=== PATIENT | male | born 1985 | race Caucasian/White ===

== ENCOUNTER 2017-10-17 17:32 | Emergency (ER) | payer OTHER ==
[~2017-10-17] VITALS: Ht 172.7 cm; Wt 90.7 kg
--- NOTE | 2017-10-17 18:08 | NUR ---
[employer] PIP[employer]. WAS WALKING AND FELL IN A HOLE. PAIN IN THE RIGHT CALF WITH TIGHTNESS AND SWELLING. VITAL SIGNS TAKEN. NOTIFIED DOCTOR OF PATIENT'S ARRIVAL. WILL F/U WITH FURTHER ORDERS. LW
[2017-10-17] MEDS ORDERED: TORADOL ONE (18:10)
[2017-10-17] MEDS ORDERED: TORADOL IM STA (18:11)
--- NOTE | 2017-10-17 18:14 | NUR ---
RAD X-RAY HERE FOR PICTURES. LW
--- NOTE | 2017-10-17 18:28 | DIREP ---
PROCEDURE:XRAY TIB & FIB 2 VW-RT COMPARISON:None. INDICATIONS:PAIN FINDINGS: BONES:Normal. JOINTS:Normal. SOFT TISSUES:Normal. OTHER:No additional findings. CONCLUSION:Normal. Dictated by: Suhas Blackwood M.D. on 10/17/2017 at 06:27 PM
--- NOTE | 2017-10-17 20:49 | DIREP ---
PROCEDURE:CT LOWER EXTREMITY-RT W/O COMPARISON:[facility], CR, XRAY TIB & FIB 2 VW-RT, 10/17/2017, 06:00 PM. INDICATIONS:r/o gastrocnemius tear TECHNIQUE:Axial sections through the left leg from the knee to the ankle were performed. No contrast was administered. Non-diagnostic, minified sagittal and coronal reconstructions are provided. FINDINGS: BONES:Normal. JOINTS:Normal SOFT TISSUES:There is swelling and heterogeneous density of the distal half of the belly of the left gastrocnemius muscle OTHER:Negative. CONCLUSION:Partial tear of the distal body of the medial head of the gastrocnemius. The extent of injury could be evaluated more accurately with MR examination, if clinically appropriate. Dictated by: Enrique Ying III, MD on 10/17/2017 at 08:43 PM
--- NOTE | 2017-10-17 21:08 | ER.PDOC ---
General Chief Complaint: Extremities Stated Complaint: R LEG INJURY Time seen by MD: 20:00 Source: patient Exam Limitations: no limitations History of Present Illness Initial Comments 32 year old [place] with right calf pain. Stepped in a rabbit hole at work today with resultant severe pain, mid calf. Unable to ambulate because of pain. Onset: this afternoon Recent Injury: Yes Where: work Severity: moderate Exacerbated By: walking movement Relieved By: rest Allergies: Coded Allergies: No Known Drug Allergies (Verified Allergy, Unknown, 10/17/17) Past Medical History Medical History: no pertinent history Surgical History: no surgical history Social History Smoking: non-smoker Alcohol Use: none Drug Use: none Review of Systems Constitutional: denies no symptoms reported, denies see HPI, denies chills, denies diaphoresis, denies fever, denies malaise, denies weakness, denies other EENTM: denies no symptoms reported, denies see HPI, denies eye pain, denies blurred vision, denies tearing, denies double vision, denies ear pain, denies ear discharge, denies nose pain, denies nose congestion, denies throat pain, denies throat swelling, denies mouth pain, denies mouth swelling, denies other Respiratory: denies no symptoms reported, denies see HPI, denies cough, denies orthopnea, denies shortness of breath, denies stridor, denies wheezing, denies other Cardiovascular: denies no symptoms reported, denies see HPI, denies chest pain , denies edema, denies palpitations, denies syncope, denies other Gastrointestinal: denies no symptoms reported, denies see HPI, denies abdominal pain, denies constipation, denies diarrhea, denies nausea, denies vomiting, denies other Genitourinary: denies no symptoms reported, denies see HPI, denies discharge, denies dysuria, denies frequency, denies hematuria, denies pain, denies other Skin: denies no symptoms reported, denies see HPI, denies change in color, denies change in hair/nails, denies dryness, denies lesions, denies lumps, denies rash, denies other Psychiatric/Neurological: denies no symptoms reported, denies see HPI, denies anxiety, denies depressed, denies emotional problems, denies headache, denies numbness, denies paresthesia, denies pre-existing deficit, denies seizure, denies tingling, denies tremors, denies weakness, denies other Physical Exam General Appearance: Alert, No Apparent Distress Lower Extremity: tenderness (tender swollen right mid calf) Joint Exam: joints nml, nml ROM, nml gait/weight bearing Vascular: no vascular compromise, pulses full/equal Neuro/Psych: sensation nml, motor nml, oriented x3, CN's nml as tested, mood/ affect nml Skin: color nml, warm/dry, no rash Back/Neck: nml inspection EENT: eyes inspection nml, ENT inspection nml, pharynx nml Respiratory: no resp distress, breath sounds nml CVS: reg rate & rhythm, heart sounds nml Abdomen: non-tender, no organomegaly, no bruit/mass Results/Orders Results/Orders Administered Medications Medications (Trade) Dose Ordered Sig/Gurpreet Route PRN Reason Start Time Stop Time Status Last Admin Dose Admin Ketorolac Tromethamine (Toradol) 60 mg STAT STAT IM 10/17/17 18:11 10/17/17 18:12 DC 10/17/17 18:13 EKG/XRAY/CT/US CT Comments: CT showed gastrecnemius tear Departure Time of Disposition: 21:05 Disposition: 01 HOME, SELF-CARE Impression: Primary Impression: Gastrocnemius muscle tear Qualified Codes: S86.111A - Strain of other muscle(s) and tendon(s) of posterior muscle group at lower leg level, right leg, initial encounter Condition: Stable Referrals: PCP,UNKNOWN (PCP) PRIMARY CARE PROVIDER Additional Instructions: Follow up Dr. Bran tomorrow morning Walking boot/crutches Tylenol #3 Naproxen prn Duration or Time Spent with Pa: 25 MOMO BENAVIDES MD Oct 17, 2017 21:08
[2017-10-17] MEDS ORDERED: MORPHINE SULFATE IM STA (21:10)
[2017-10-17] MEDS ORDERED: ZOFRAN IM STA (21:10)
[2017-10-17] MEDS ORDERED: MORPHINE SULFATE ONE (21:21)
[2017-10-17 22:13] VITALS: BP 149/82
== END 2017-10-17 22:06 | disposition home or self-care (01) ==
LOC: ER 17:32
DX: S86.811A Strain of other muscle(s) and tendon(s) at lower leg level, right leg, initial encounter (principal); X58.XXXA Exposure to other specified factors, initial encounter; Y93.89 Activity, other specified; Y92.69 Other specified industrial and construction area as the place of occurrence of the external cause; Y99.0 Civilian activity done for income or pay
CPT/HCPCS: 73590; 73700; 96372 ×2; 99284; J1885; J2270